=== PATIENT | female | born 1945 | race Caucasian/White ===

== ENCOUNTER 2017-04-30 18:13 | Emergency (ER) | payer MEDICARE ==
[~2017-04-30 18:13] MED LIST: Sodium Chloride 0.9% 500 ML BAG ONE
[2017-04-30] MEDS ORDERED: Ondansetron HCl/PF 4 MG/2 ML Vial ONE (18:58)
[2017-04-30] MEDS ORDERED: Ketorolac Tromethamine 30 MG/ML VIAL ONE (18:58)
--- NOTE | 2017-04-30 19:57 | RAD ---
EXAM: TWO VIEWS LEFT ELBOW 04/30/17 HISTORY: Fall. Pain. COMPARISON: None. FINDINGS: Subcutaneous emphysema suggesting soft tissue laceration. There is a minimally displaced proximal ra dius fracture. Comminuted proximal ulnar fracture is noted. Associated joint effusion is identified. IMPRESSION: Proximal radius and ulna fractures. POS: [facility]
--- NOTE | 2017-04-30 20:07 | RAD ---
EXAM: LEFT FOREARM TWO VIEWS 04/30/17 HISTORY: Fall and pain. COMPARISON: None. FINDINGS: There is a distal radius fracture with significant dislocation. Questionable intra-articular extensi on. Ulnar styloid fracture is noted. Proximal radius and ulnar fracture are redemonstrated which have been described on the elbow radiogr aph report. IMPRESSION: Fracture involving the proximal and distal radius. Fracture involving the proximal and distal ulna. There is associated deformity and displacement. POS: [facility]
--- NOTE | 2017-04-30 20:10 | RAD ---
LEFT WRIST THREE VIEWS 04/30/17 HISTORY: Fall. Pain. FINDINGS: There is a distal radius fracture with volar angulation of the distal radius with respect of the rem ainder of the radial diaphysis. There is ulnar styloid fracture. With regard to the carpal bones, a definite fracture is not appreciated. IMPRESSION: Distal radius and ulnar fractures. POS: [facility]
--- NOTE | 2017-04-30 20:35 | CT ---
EXAM: NONCONTRAST HEAD CT 04/30/17 HISTORY: Patient fell down four steps and hit forehead. COMPARISON: None. TECHNIQUE: Noncontrast head CT is performed from skull base to skull vertex. FINDINGS: No parenchymal hemorrhage or extra-axial hematoma. No midline shift. Basilar cisterns are patent. Brain volume, age appropriate. Cortical davis-white matter differentiation is preserved. Ventricles a nd sulci are patent and symmetric. Hypodensity along the anterior left [place] radiata is nonspecific . Calvarium is intact. Adequate aeration of the sinuses and mastoid air cells. IMPRESSION: 1. No intracranial or posttraumatic sequela. 2. Nonspecific hypodensity in the anterior left coronal radiata. Better interrogation with none mergent MRI can be performed. POS: [facility]
--- NOTE | 2017-04-30 21:04 | CT ---
EXAM: CERVICAL SPINE CT WITHOUT CONTRAST 04/30/17 HISTORY: Fall down four steps. Posttraumatic pain. COMPARISON: None. FINDINGS: There is no prevertebral soft tissue swelling or epidural hematoma. The visualized soft tissues, nec k structures, upper mediastinum and lung apices are unremarkable. There is mild central canal stenos is and varying degrees of foraminal narrowing on the basis of degenerative change. Coronal reformatted images demonstrate appropriate alignment of the lateral masses of C1 and C2 as w ell as the intra-articular facets. Sagittal reformatted images demonstrate mild exaggeration of norm al cervical lordosis which, is likely due to patient position, muscle spasm, or cervical collar. Cur rent study is not tailored to assess for ligamentous injury. Based on the axial images, cervical spine vertebral body heights are maintained. There is no fractur e. IMPRESSION: No fracture. Exaggeration of normal cervical lordosis as detailed above. POS: [facility]
== END 2017-04-30 20:24 | disposition short-term general hospital (02) ==
LOC: MADERS 18:13
DX: S52.572A Other intraarticular fracture of lower end of left radius, initial encounter for closed fracture (principal); S52.612A Displaced fracture of left ulna styloid process, initial encounter for closed fracture; S52.102A Unspecified fracture of upper end of left radius, initial encounter for closed fracture; S52.002A Unspecified fracture of upper end of left ulna, initial encounter for closed fracture; S00.93XA Contusion of unspecified part of head, initial encounter; Z79.899 Other long term (current) drug therapy; Z79.84 Long term (current) use of oral hypoglycemic drugs; W10.9XXA Fall (on) (from) unspecified stairs and steps, initial encounter
CPT/HCPCS: 70450; 72125; 96374; 96375; J1885; J2270; J2405; J7050

== ENCOUNTER 2021-12-16 15:57 | Emergency (ER) | payer MEDICARE ==
[2021-12-16] MEDS ORDERED: Meclizine HCl 25 MG TAB ONE ×2 (16:36→16:37)
[2021-12-16 17:04] LABS: Bilirubin Negative (Negative); Blood, Urine Trace (Negative); Glucose, Urine (Dipstick) Negative (Negative); Ketone, Urine Negative (Negative); Leukocyte Trace (Negative); Nitrite Negative (Negative); Protein, Urine (Dipstick) Negative (Neg-Trace); Specific Gravity, Urine 1.025 (1.005-1.030); Urobilinogen 0.2 mg/dL (Less than 2); pH, Urine 5.5 (5.0-9.0)
[2021-12-16 17:09] LABS: Bacteria/HPF 2+ HPF (None Seen); Clarity Hazy (Clear); RBC/HPF 0-3 HPF (0-3); Squamous Epithelial 0-3 HPF (0-3)
[2021-12-16] MEDS ORDERED: Ciprofloxacin 500 MG TAB ONE (18:17)
== END 2021-12-16 18:21 | disposition home or self-care (01) ==
LOC: MADERS 15:57
DX: N39.0 Urinary tract infection, site not specified (principal); R42 Dizziness and giddiness; R29.700 NIHSS score 0
CPT/HCPCS: 81003; 81015; 87086; 93005

== ENCOUNTER 2023-06-30 13:05 | Emergency (ER) | payer MEDICARE ==
[2023-06-30 13:29] LABS: Bilirubin Negative (Negative); Blood, Urine Negative (Negative); Glucose, Urine (Dipstick) Negative (Negative); Ketone, Urine Negative (Negative); Leukocyte Negative (Negative); Nitrite Negative (Negative); Protein, Urine (Dipstick) 100 mg/dL (Neg-Trace); Urobilinogen 0.2 mg/dL (Less than 2)
[2023-06-30 13:30] LABS: Clarity Hazy (Clear)
[2023-06-30 13:39] LABS: Bacteria/HPF 3+ HPF (None Seen); CAUTI Indications for Culture Alt mental st,lethar; Mucous/LPF Few LPF (<2+); RBC/HPF None Seen HPF (0-3); Urine Culture Reflex No No; WBC/HPF 0-3 HPF (0-3)
== END 2023-06-30 14:04 | disposition home or self-care (01) ==
LOC: MADERS 13:05
DX: U07.1 COVID-19 (principal); R51.9 Headache, unspecified; R80.9 Proteinuria, unspecified; R29.700 NIHSS score 0
CPT/HCPCS: 81001; 99284